=== PATIENT | female | born 1950 | race Hispanic/Latino ===

== ENCOUNTER → 2020-09-12 | Outpatient (CLI) | payer OTHER | END | disposition home or self-care (01) | LOC: RAH 13:39 | PROVIDERS: ATTEND Internal Medicine Cardiovascular Disease | DX: Z13.6 Encounter for screening for cardiovascular disorders (principal) | CPT/HCPCS: 75571 ==

== ENCOUNTER 2023-06-02 01:11 | Emergency (ER) | payer OTHER, MEDICARE ==
[~2023-06-02] VITALS: Ht 157.5 cm; Wt 77.1 kg
[2023-06-02] MEDS ORDERED: KETOROLAC 60 MG VIAL (30MG/ML) IM ONE (04:30)
[2023-06-02] MEDS ORDERED: PROPOFOL 10 MG/ML 20ML VIAL IV ONE (06:27)
[2023-06-02] MEDS ORDERED: 0.9%NACL 1000ML 1,000 ML IV SCH (07:00)
[2023-06-02] MEDS ORDERED: PROPOFOL 10 MG/ML 20ML VIAL IV SCH (07:00)
[2023-06-02 07:03] VITALS: BP 133/83
[2023-06-02] MEDS ORDERED: MELO-106 PO (07:07)
[2023-06-02] MEDS ORDERED: CYCL10TA16 PO (07:07)
== END 2023-06-02 08:07 | disposition home or self-care (01) ==
LOC: EDH 01:11
DX: S52.612A Displaced fracture of left ulna styloid process, initial encounter for closed fracture (principal); E78.00 Pure hypercholesterolemia, unspecified; I10 Essential (primary) hypertension; Z79.1 Long term (current) use of non-steroidal anti-inflammatories (NSAID); W18.39XA Other fall on same level, initial encounter; Y93.41 Activity, dancing; Y92.89 Other specified places as the place of occurrence of the external cause; Y99.8 Other external cause status
CPT/HCPCS: 25605; 99285; 73100; 73110; 70450; 72125; 96372; J2704; J1885

== ENCOUNTER 2024-06-19 18:12 | Emergency (ER) | payer OTHER, MEDICARE ==
[~2024-06-19] VITALS: Ht 157.5 cm; Wt 74.8 kg
[~2024-06-19 18:12] MED LIST: CYCL10TA16 PO; MELO-106 PO
[2024-06-19] MEDS: DIPH,PERTUSS(ACELL),TET VAC/PF 0.5 ML VIAL IM ONE (20:29)
[2024-06-19 21:30] VITALS: BP 138/67; PULSE 60; RESP 17; O2SAT 97
== END 2024-06-19 21:38 | disposition home or self-care (01) ==
LOC: EDH 18:12
DX: S01.01XA Laceration without foreign body of scalp, initial encounter (principal); S50.02XA Contusion of left elbow, initial encounter; I10 Essential (primary) hypertension; E78.00 Pure hypercholesterolemia, unspecified; Z79.899 Other long term (current) drug therapy; W11.XXXA Fall on and from ladder, initial encounter; Y93.89 Activity, other specified; Y92.89 Other specified places as the place of occurrence of the external cause; Y99.8 Other external cause status
CPT/HCPCS: 12001; 70450; 71250; 72125; 73080; 74176; 90471; 90715